=== PATIENT | female | born 1955 | race Caucasian/White ===

== ENCOUNTER 2020-07-04 10:20 | Outpatient (CLI) | payer MEDICARE, OTHER, SELFPAY ==
[2020-07-04 10:39] LABS: Basophils Absolute Auto 0.1 K/mm3 (0.0-0.1); Basophils Percent Auto 1.1 % (0.2-1.2); Eosinophils Absolute Auto 0.2 K/mm3 (0-0.3); Eosinophils Percent Auto 2.1 % (0-4.4); Hematocrit 44.3 % (37.0-47.0); Hemoglobin 14.2 g/dL (12.0-15.0); Immature Granulocyte Absolute 0.03 K/mm3 (0.00-0.031); Immature Granulocyte Percent A 0.3 % (0-0.5); Lymphocytes Absolute Auto 2.64 K/mm3 (0.9-3.2); Lymphocytes Percent Auto 25.4 % (18.3-44.2); Mean Corpuscular HGB Conc 32.1 g/dl (32-36); Mean Corpuscular Hemoglobin 25.9 pg (26-34); Mean Corpuscular Volume 80.7 fl (80-100); Mean Platelet Volume 11.4 fl (7.4-10.4); Monocytes Absolute Auto 0.9 K/mm3 (0.1-0.6); Monocytes Percent Auto 8.8 % (2.6-8.5); Neutrophils Absolute Auto 6.5 K/mm3 (1.3-6.7); Neutrophils Percent Auto 62.3 % (45.5-73.1); Platelet Count Result 276 k/mm3 (150-375); Red Blood Count 5.49 M/mm3 (4.2-5.4); Red Cell Distribution Width 16.6 % (11.5-14.5); White Blood Count 10.4 K/mm3 (4.5-10.0)
[2020-07-04 12:27] LABS: Alanine Aminotransferase 21 U/L (4-35); Albumin Level 4.2 g/dL (3.5-5.1); Alkaline Phosphatase 74 U/L (38-126); Anion Gap 6 mmol/L (8-16); Aspartate Amino Transferase 27 U/L (14-36); Bilirubin,Total 0.9 mg/dL (0.2-1.3); Blood Urea Nitrogen 16 mg/dL (7-17); Calcium 9.8 mg/dL (8.4-10.2); Carbon Dioxide 32 mmol/L (22-30); Chloride 101 mmol/L (98-107); Estimated Glomerular Filt Rate > 60; Glucose 98 mg/dL (65-105); Potassium 4.4 mmol/L (3.4-5.0); Sodium 139 mmol/L (137-145)
[2020-07-05 09:15] LABS: Blood Urea Nitrogen 15 mg/dL (8-26); Carbon Dioxide 29 mmol/L (22-30); Chloride 101 mmol/L (98-109); Estimated Glomerular Filt Rate > 60; Glucose 95 mg/dL (70-105); Potassium 4.1 mmol/L (3.5-4.9); Sodium 139 mmol/L (138-146)
== END 2020-07-04 10:21 | disposition home or self-care (01) ==
LOC: ANHLAB 10:22
PROVIDERS: PCP Family Medicine; Visit Provider Internal Medicine Hematology & Oncology
DX: D75.1 Secondary polycythemia (principal)
CPT/HCPCS: 36415; 80048; 80053; 85025

== ENCOUNTER → 2021-10-10 09:32 | Outpatient (CLI) | payer MEDICARE, OTHER, SELFPAY ==
--- NOTE | ~2021-10-10 | MR_ITS ---
EXAMINATION: MR hip RT wo con DATE: 10/10/2021 10:38 INDICATION: Right hip pain TECHNIQUE: Magnetic resonance imaging (MRI) of the right hip was performed without intravenous contr ast. Sequences included full-field axial PD-weighted FS FSE and T1-weighted FSE, coronal of the pelvi s with PD-weighted FS FSE, T2-weighted FSE and T1-weighted FSE, small field of view of the right hip with axial PD-weighted FS FSE, sagittal PD-weighted FS FSE, coronal PD-weighted FS FSE and coronal T2 weighted FSE. Additional radial T1-weighted FGR oriented orthogonal to the acetabular rim were obt ained for evaluation of the labrum. COMPARISON: Right hip radiographs dated 08/05/2015 FINDINGS: Bones/labrum/cartilage: Alignment is normal. No fracture, avascular necrosis or pathologic marrow replacing process. Degener ative tearing of the anterosuperior to superolateral right acetabular labrum. Deep posterior superior labrum is diminutive having been largely replaced by an acetabular marginal osteophyte. Mild partial -thickness cartilage loss at the posterior joint space with smooth appearing chondral surface and wit hout degenerative subchondral changes. Magnetic metallic field artifact associated with a bone graft cages for L4-L5 anterior spinal fusion and bilateral vertical angelito and pedicle screw fixation for post erior spinal fusion at the same level. Fluid: Symmetric physiologic amount of fluid within both hip joints. Small amount of fluid consistent with m ild bilateral gluteus minimus bursitis. Soft tissues: There is complete avulsion of the left proximal hamstring tendons which are retracted along with the dorsal aspect of the muscle bellies beyond the caudal-most image. There is otherwise normal symmetric muscle bulk in the pelvis and proximal thighs. Mild right gluteus minimus and moderate right gluteus medius medius tendinopathy. There is partial thickness tear involving the anterior half of the dista l right gluteus medius tendon with feathery muscular atrophy in the distal muscle and retraction of t he myotendinous junction position approximately 3.5 cm proximal to the lateral facet footplate of the greater trochanter. There is feathery muscular edema along the right gluteus medius myotendinous sushil ction. The lateral iliopsoas, left gluteal and right proximal hamstring tendons are normal. Complete avulsion of the left ischial tuberosity attachment of the proximal left hamstring tendons. The uterus is not identified and has likely been surgically resected. Limited evaluation of visceral organs o f the pelvis is otherwise unremarkable. No pathologically enlarged pelvic/inguinal lymphadenopathy. IMPRESSION: 1. Mild right hip osteoarthritis with labral tear. 2. Mild right gluteus minimus bursitis with mild right gluteus minimus and severe right gluteus mediu s tendinopathy. Partial-thickness tear of involving the lateral facet insertion of the gluteus medius tendon with mild proximal retraction of the myotendinous junction. 3. Mild left gluteus minimus bursitis with normal appearing left gluteus medius and minimus tendons. 4. chronic complete avulsion of the proximal left hamstring tendons from the left ischial tuberosity. Reviewed, dictated and finalized at location A. IMPRESSION: 1. Mild right hip osteoarthritis with labral tear. 2. Mild right gluteus minimus bursitis with mild right gluteus minimus and nohelia re right gluteus medius tendinopathy. Partial-thickness tear of involving the l ateral facet insertion of the gluteus medius tendon with mild proximal retracti on of the myotendinous junction. 3. Mild left gluteus minimus bursitis with normal appearing left gluteus medius and minimus tendons. 4. chronic complete avulsion of the proximal left hamstring tendons f
--- NOTE | ~2021-10-10 | MR_ITS ---
EXAMINATION: MR lumbar spine wo con DATE: 10/10/2021 10:45 INDICATION: Low back pain, unspecified. TECHNIQUE: Magnetic resonance imaging (MRI) of the lumbar spine was performed without intravenous con trast. Sequences included sagittal T2-weighted FSE, sagittal T2-weighted FS FSE, sagittal T1-weighted FSE, and axial T2-weighted FSE. COMPARISON: Lumbar spine MRI 02/15/2014 FINDINGS: There is 9 degrees levocurvature of lumbar spine. There is 3 mm anterolisthesis of L5 on S1 . Vertebral body heights are normal. There are changes of anterior and posterior fusion procedures at L4-L5 with interbody device, healed interbody bone graft, and pedicle screws. There is mildly decrea sed disc height at L3-L4 and moderately decreased disc height at L5-S1. The distal spinal cord signal intensity is normal. The conus medullaris is at L1. There are cysts in right kidney measuring up to 18 mm. The following disc levels are specifically discussed: L1-L2: The disc is bulging. There is moderate bilateral facet joint osteoarthritis. There is mild semaj ateral neural foraminal stenosis. There is mild central canal stenosis. L2-L3: The disc is bulging. There is mild bilateral facet joint osteoarthritis. There is mild bilater al neural foraminal stenosis. There is mild central canal stenosis. L3-L4: The disc is bulging and has an annular fissure. There is moderate bilateral facet joint osteoa rthritis. There is mild right and moderate left neural foraminal stenosis. There is mild central linda l stenosis. L4-L5: There is mild bilateral facet joint hypertrophy. There is mild bilateral neural foraminal sten osis. There is no central canal stenosis. L5-S1: The disc is bulging and has an annular fissure. There is severe bilateral facet joint osteoart hritis. There is mild right and moderate left neural foraminal stenosis. There is mild central canal stenosis. IMPRESSION: 1. Moderate lumbar spondylosis with worsening at L3-L4 and L5-S1. 2. Anterior and posterior fusion procedures at L4-L5. Reviewed, dictated and finalized at location A.
--- NOTE | ~2021-10-10 | XR_ITS ---
XR lumbar spine min 4V DATE: 10/10/2021 10:58 INDICATION: Low back pain TECHNIQUE: AP, lateral, bilateral oblique views, coned lateral lumbosacral view COMPARISON: None FINDINGS: There is diffuse osteopenia. There is mild levoscoliosis of the lumbar spine. Status post posterior and interbody surgical fusion at L4-5. There is moderate degenerative disc disease at L1-2, L2-3 and mild degenerative disc disease at L3-4 and L5-S1. The sacroiliac joints are intact. Status post cholecystectomy. IMPRESSION: Status post posterior and interbody spinal fusion at L4-5 Mild to moderate degenerative disc disease Osteopenia Status post cholecystectomy Reviewed, dictated and finalized at location A.
== END ==
PROVIDERS: PCP Family Medicine; Visit Provider Nurse Practitioner
DX: M16.11 Unilateral primary osteoarthritis, right hip (principal); Z98.1 Arthrodesis status; M51.36 Other intervertebral disc degeneration, lumbar region; M85.88 Other specified disorders of bone density and structure, other site; Z90.49 Acquired absence of other specified parts of digestive tract; M47.896 Other spondylosis, lumbar region
CPT/HCPCS: 72110; 72148; 73721